=== PATIENT | male | born 2000 | race Caucasian/White ===

== ENCOUNTER 2022-09-14 13:08 | Outpatient (CLI) | payer OTHER ==
[~2022-09-14 13:08] MED LIST: Iopamidol 370 76% 100 ML VIAL ONE
== END 2022-09-14 13:09 | disposition home or self-care (01) ==
LOC: BICCT 13:08
PROVIDERS: ATTEND Urology
DX: R31.0 Gross hematuria (principal); N50.89 Other specified disorders of the male genital organs
CPT/HCPCS: 74178

== ENCOUNTER 2022-10-05 08:28 | Day surgery (SDC) | payer OTHER ==
[2022-10-02 13:47] VITALS: BMI 19.2
[2022-10-05 09:50] VITALS: BP 128/89; TEMP 97.5
== END 2022-10-05 13:15 | disposition home or self-care (01) ==
LOC: CT 08:28
PROVIDERS: ATTEND Internal Medicine Nephrology
DX: N18.1 Chronic kidney disease, stage 1 (principal); Z53.8 Procedure and treatment not carried out for other reasons
CPT/HCPCS: 50200; 71045; 77012